=== PATIENT | female | born 1985 | race Caucasian/White ===

== ENCOUNTER → 2019-06-27 09:10 | Outpatient (BNVA) | payer OTHER, SELFPAY | PROVIDERS: Family Provider Family Medicine; PCP Family Medicine; Referring Provider Obstetrics & Gynecology; Visit Provider Obstetrics & Gynecology | DX: Z32.01 Encounter for pregnancy test, result positive (principal) | CPT/HCPCS: 81025 ==

== ENCOUNTER → 2019-07-18 11:05 | Outpatient (BNVA) | payer OTHER, SELFPAY | PROVIDERS: Family Provider Family Medicine; PCP Family Medicine; Visit Provider Nurse Practitioner Women's Health | DX: Z34.90 Encounter for supervision of normal pregnancy, unspecified, unspecified trimester (principal); Z78.9 Other specified health status; Z3A.08 8 weeks gestation of pregnancy | CPT/HCPCS: 84315; 87086 ==

== ENCOUNTER → 2019-07-20 15:44 | Outpatient (BNVA) | payer OTHER, SELFPAY | PROVIDERS: Family Provider Family Medicine; PCP Family Medicine; Referring Provider Nurse Practitioner Women's Health; Visit Provider Nurse Practitioner Women's Health | DX: Z36.87 Encounter for antenatal screening for uncertain dates (principal); Z3A.01 Less than 8 weeks gestation of pregnancy | CPT/HCPCS: 76817 ==

== ENCOUNTER → 2019-08-03 11:50 | Outpatient (BNVA) | payer OTHER, SELFPAY | PROVIDERS: Family Provider Family Medicine; PCP Family Medicine; Visit Provider Obstetrics & Gynecology | DX: Z34.80 Encounter for supervision of other normal pregnancy, unspecified trimester (principal); Z86.39 Personal history of other endocrine, nutritional and metabolic disease | CPT/HCPCS: 80053; 80307; 84315; 84443; 85027; 86592; 86762; 86803; 86850; 86900; 87340; 87806 ==

== ENCOUNTER → 2019-08-15 15:30 | Outpatient (BNVA) | payer OTHER, SELFPAY | PROVIDERS: Family Provider Family Medicine; PCP Family Medicine; Visit Provider Obstetrics & Gynecology | DX: Z34.80 Encounter for supervision of other normal pregnancy, unspecified trimester (principal); Z12.4 Encounter for screening for malignant neoplasm of cervix; Z34.90 Encounter for supervision of normal pregnancy, unspecified, unspecified trimester | CPT/HCPCS: 82950; 84315; 87491; 87591; 88175 ==

== ENCOUNTER → 2019-09-18 10:00 | Outpatient (BNVA) | payer SELFPAY | PROVIDERS: Family Provider Family Medicine; PCP Family Medicine; Visit Provider Nurse Practitioner Women's Health | DX: O09.291 Supervision of pregnancy with other poor reproductive or obstetric history, first trimester (principal); Z86.39 Personal history of other endocrine, nutritional and metabolic disease | CPT/HCPCS: 84315; 84439; 84443 ==

== ENCOUNTER 2019-09-20 15:09 | Outpatient (CLI) | payer OTHER, SELFPAY ==
[2019-09-20 16:03] LABS: Free T4 Free Thyroxine 0.86 ng/dL (0.82-1.77); Thyroid Stimulating Hormone 3.83 uIU/mL (0.27-4.20)
[2019-09-20 22:55] LABS: Total Protein 24 Hour Urine 292.5 mg/24HR (0-150); Total Volume, Urine 4875 mL
== END 2019-09-20 15:10 | disposition home or self-care (01) ==
LOC: LAB 15:17
PROVIDERS: Nurse Practitioner Women's Health; Visit Provider Obstetrics & Gynecology
DX: Z86.39 Personal history of other endocrine, nutritional and metabolic disease (principal); O09.291 Supervision of pregnancy with other poor reproductive or obstetric history, first trimester
CPT/HCPCS: 36415; 84156; 84439; 84443

== ENCOUNTER → 2019-10-22 08:08 | Outpatient (BNVA) | payer OTHER, SELFPAY | PROVIDERS: Visit Provider Obstetrics & Gynecology | DX: Z36.89 Encounter for other specified antenatal screening (principal) | CPT/HCPCS: 76805 ==

== ENCOUNTER 2019-11-07 12:47 | Emergency (ER) | payer OTHER, SELFPAY ==
[2019-11-07 12:53] VITALS: BP 164/74; PULSE 94; RESP 16; TEMP 36.9; O2SAT 97; BMI 47.1
--- NOTE | 2019-11-07 12:55 | ED_ITS ---
HPI - Back Pain/Injury General: Chief Complaint: Chest Pain Stated Complaint: back pain/cp Time Seen by Provider: 11/07/19 12:55 Source: patient Mode of arrival: ambulatory Limitations: no limitations History of Present Illness: HPI Narrative: Patient is 22 weeks , she reports she was sitting down and eating lunch when she started having some chest discomfort. Patient came to the emergency room for further evaluation. Patient reports her pain is relieved at this time after laying down. Patient appears well. Patient appears in no pain or discomfort. Vital signs are normal except for mild elevation in blood pressure with a systolic of 164. Review of Systems General: Reports: 10 or more systems reviewed and unremarkable except in HPI and below Card: Reports: chest pain [facility] ED PFSH: Medical History (Updated 11/07/19 @ 15:58 by KELLY Gomez) History of hypothyroidism TSH normal on 08/03/2019 at the beginning of the History of kidney stones Surgical History H/O dilation and curettage (~2006) Due to heavy bleeding H/O lithotripsy (~2015) left kidney/ureter to remove the stent Family History Father Hypertension Grandmother Stroke Maternal grandmother Diabetes Paternal grandmother Social History Smoking and tobacco status: never smoked Alcohol intake: never Physical Exam Const: COMMON NORMALS: no acute distress and patient oriented x3 GENERAL AP PEARANCE: cooperative HENMT: COMMON NORMALS: normocephalic and Normal external nose present HEAD & SCALP: normal to inspection and normocephalic NOSE: Normal external nose present MOUTH: Normal oral and palatal mucosa present THROAT: posterior oropharynx normal Eye: GENERAL EYE: appearance normal, both eyes and all related structures Neck/C-Spine: COMMON NORMALS: full ROM Lymph: LYMPHATIC: no lymphadenopathy noted Chest: COMMONS NORMALS: normal inspection of the chest Resp: COMMON NORMALS: normal respiratory effort EFFORT & INSPECTION: Yes able to speak in complete sentences Cardio: COMMON NORMALS: regular rate and regular rhythm RATE: regular rate RHYTHM: regular rhythm HEART SOUNDS: Murmur heart sound present systolic (mild grade 3) GI: COMMON NORMALS: non-tender : COMMON NORMALS: Yes no CVA tenderness BLADDER/KIDNEY EXAM: Yes no CVA tenderness Back/Pelvis: COMMON NORMALS: no CVA tenderness and thoracic and lumbar spine normal to inspection Extremity: COMMON NORMALS: normal to inspection Neuro: COMMON NORMALS: patient oriented x3 and moves all extremities Psych: COMMON NORMALS: mental status grossly normal and cooperative Skin: COMMON NORMALS: no rashes or lesions noted GENERAL SKIN EXAM: no rashes or lesions noted Course 2 Vital Signs: Vital signs: Vital Signs Temperature 98.4 F 11/07/19 12:53 Pulse Rate 94 11/07/19 12:53 Respiratory Rate 16 11/07/19 12:53 Blood Pressure 164/74 11/07/19 12:53 Pulse Oximetry 97 11/07/19 12:53 MDM - Back Pain/Injury MDM Narrative: Medical decision making narrative: Patient comes in today with chest pain onset after eating. Patient is 22 weeks denies any shortness of breath and reports that her pain is much improved since coming to the emergency department. Patient appears well. Abdomen soft and nontender. Vital signs are normal except for some mild elevation in blood pressure at 160 systolic. Differential diagnosis includes but not limited to gastroesophageal reflux, cholecystitis, cholelithiasis, appendicitis, pancreatitis, gastroenteritis, ACS, cardiomyopathy. Troponin was negative at 0 and second hour. Liver enzymes are normal. CBC was normal. Urinalysis was clear. Troponin was 0.9 although in light of no other signs or symptoms or significance I believe is normal. EKG was normal sinus rhythm. Reviewed exam with patient and recommendations of treatment. Patient reported understanding and agreed with plan. Patient did understand the need for follow-up for worsening symptoms or shortness of breath. Lab Data: Labs: Lab Results 11/07/19 11/07/19 11/07/19 Range/Units 13:22 13:22 13:22 WBC 8.9 (4.0-10.0) 10^3/ uL RBC 4.14 (4.1-5.3) 10^6/u L Hgb 11.5 (11.5-15.3) g/dL Hct 36.1 L (37.0-47.0) % MCV 87.2 (81-99) fL MCH 27.8 L (28.0-34.0) pg MCHC 31.9 (30.0-36.0) g/dL RDW 13.4 (12.1-15.1) % Plt Count 202 (130-400) 10^3/c mm MPV 10.5 H (7.4-10.4) fL Neut % (Auto) 72.1 % Lymph % (Auto) 20.0 % [place] % (Auto) 5.5 % Eos % (Auto) 2.0 % Baso % (Auto) 0.2 % Neut # (Auto) 6.4 (1.8-7.7) 10^3/u L Lymph # (Auto) 1.8 (0.8-4.8) 10^3/u L [place] # (Auto) 0.5 (0.2-0.9) 10^3/u L Eos # (Auto) 0.2 (0.0-0.8) 10^3/u L Baso # (Auto) 0.0 (0.0-0.1) 10^3/u L Nucleated RBC % (a uto) 0 % Nucleated RBCs # 0.0 /100WBC PT 13.90 H (10.5-13.3) SECO NDS INR 1.03 (0.8-1.2) APTT 28.3 (23.9-36.7) SECO NDS D-Dimer 0.96 H (0-0.59) ug/mIFE U Sodium 137 (136-145) mmol/L Potassium 3.5 (3.5-5.1) mmol/L Chloride 103 (98-107) mmol/L Carbon Dioxide 21 L (22-29) mmol/L Anion Gap 16.5 (5-19) BUN 9 (6-20) mg/dL Creatinine 0.5 (0.5-0.9) mg/dL GFR Calculation 143.0 H (90-130) mL/min Glucose 93 (65-115) mg/dL Calculated Osmolal ity 280 L (285-295) mOsm/k g Calcium 9.1 (8.5-10.5) mg/dL Total Bilirubin 0.2 (0.15-1.2) mg/dL AST 13 (0-32) U/L ALT 10 (0-33) U/L Alkaline Phosphata se 63 (35-105) IU/L Troponin T Baselin e (0-10) ng/L Troponin T 120 Min [place] (0-10) ng/L Delta Troponin T (0-10) ABS# Total Protein 6.1 L (6.6-8.7) g/dL Albumin 3.8 (3.5-5.2) g/dL Globulin 2.3 (1.3-4.6) g/dL Urine Color (Yellow) Urine Appearance (CLEAR) Urine pH (5-7) Ur Specific Gravit y (1.005-1.030) Urine Protein (Negative) Urine Glucose (UA) (Normal) Urine Ketones (Negative) Urine Blood (Negative) Urine Nitrate (Negative) Urine Bilirubin (NEGATIVE) Urine Urobilinogen (Negative) mg/dL Ur Leukocyte Gaby ase (Negative) Urine RBC (0-2) /hpf Urine WBC (0-5) /hpf Ur Squamous Epith Cells (0-5) Calcium Oxalate Cr ystal /hpf Amorphous Sediment Urine Bacteria (NONE) Urine Mucus 11/07/19 11/07/19 11/07/19 Range/Units 13:22 13:30 15:30 WBC (4.0-10.0) 10^3/ uL RBC (4.1-5.3) 10^6/u L Hgb (11.5-15.3) g/dL Hct (37.0-47.0) % MCV (81-99) fL MCH (28.0-34.0) pg MCHC (30.0-36.0) g/dL RDW (12.1-15.1) % Plt Count (130-400) 10^3/c mm MPV (7.4-10.4) fL Neut % (Auto) % Lymph % (Auto) % [place] % (Auto) % Eos % (Auto) % Baso % (Auto) % Neut # (Auto) (1.8-7.7) 10^3/u L Lymph # (Auto) (0.8-4.8) 10^3/u L [place] # (Auto) (0.2-0.9) 10^3/u L Eos # (Auto) (0.0-0.8) 10^3/u L Baso # (Auto) (0.0-0.1) 10^3/u L Nucleated RBC % (a uto) % Nucleated RBCs # /100WBC PT (10.5-13.3) SECO NDS INR (0.8-1.2) APTT (23.9-36.7) SECO NDS D-Dimer (0-0.59) ug/mIFE U Sodium (136-145) mmol/L Potassium (3.5-5.1) mmol/L Chloride (98-107) mmol/L Carbon Dioxide (22-29) mmol/L Anion Gap (5-19) BUN (6-20) mg/dL Creatinine (0.5-0.9) mg/dL GFR Calculation (90-130) mL/min Glucose (65-115) mg/dL Calculated Osmolal ity (285-295) mOsm/k g Calcium (8.5-10.5) mg/dL Total Bilirubin (0.15-1.2) mg/dL AST (0-32) U/L ALT (0-33) U/L Alkaline Phosphata se (35-105) IU/L Troponin T Baselin e 6 (0-10) ng/L Troponin T 120 Min [place] 6.00 (0-10) ng/L Delta Troponin T 0 (0-10) ABS# Total Protein (6.6-8.7) g/dL Albumin (3.5-5.2) g/dL Globulin (1.3-4.6) g/dL Urine Color Yellow (Yellow) Urine Appearance Sl cloudy A (CLEAR) Urine pH 5 (5-7) Ur Specific Gravit y 1.030 (1.005-1.030) Urine Protein Neg (Negative) Urine Glucose (UA) Norm (Normal) Urine Ketones Negative (Negative) Urine Blood Neg (Negative) Urine Nitrate Negative (Negative) Urine Bilirubin Neg (NEGATIVE) Urine Urobilinogen Neg (Negative) mg/dL Ur Leukocyte Gaby ase 2+ H (Negative) Urine RBC None (0-2) /hpf Urine WBC 40-55 H (0-5) /hpf Ur Squamous Epith Cells 15-25 H (0-5) Calcium Oxalate Cr ystal 5-10 H /hpf Amorphous Sediment Not Reportable Urine Bacteria 2+ H (NONE) Urine Mucus 2+ EKG Data^: EKG 1: Attestation: I personally reviewed and interpreted this EKG as follows: (1307, normal sinus rhythm, 85 bpm and regular. No ectopy, no ST elevation.) EKG 2: Attestation: I personally reviewed and interpreted this EKG as follows: (1507, normal sinus rhythm, 80 bpm and regular, no ectopy, no ST elevation, no change from prior EKG.) Discharge Plan Discharge Patient Disposition: Home, Self-Care Clinical Impression: Atypical chest pain Condition: Stable Prescriptions: New famotidine 20 mg tablet 20 mg PO BID Qty: 60 RF: 0 No Action prenat.vits,jay,[id number] Tablet 1 tab PO DAILY RF: 0 aspirin 81 mg tablet,delayed release (DR/EC) 81 mg PO DAILY RF: 0 fluoxetine 20 mg capsule 20 mg PO DAILY Qty: 30 RF: 6 Discharge Orders: Discharge Order (Routine); Ordered 11/07/19 Ordered By: Hugo Boland Referrals: Janet Valentino MD [Primary Care Provider] - Discharge Diet: Usual diet Discharge Activity: Increase activity as tolerated Activity Restrictions/Additional Instructions: Drink plenty of water. Light diet avoiding really spicy, acidic, or greasy foods. Healthy diet including plenty of fresh fruits and vegetables. Activity as tolerated. Follow-up with primary care in 1 week. Return to the ER for worsening symptoms or increased difficulty breathing. Coding Level of Care Code ED Senior Product Engineer for Chg Fwd Exam Comprehensive
--- NOTE | 2019-11-07 13:01 | ECG_ITS ---
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 Measurements Intervals [place] Rate: 85 P: 30 DE: 125 QRS: 35 QRSD: 92 T: 34 QT: 368 QTc: 438 Interpretive Statements SINUS RHYTHM No previous ECG available for comparison Electronically Signed On 11-07-2019 17:06:47 CDT by Laura Lund M.D. [id number]
[2019-11-07 13:34] LABS: Basophils % 0.2 %; Eosinophils # 0.2 10^3/uL (0.0-0.8); Hematocrit 36.1 % (37.0-47.0); Hemoglobin 11.5 g/dL (11.5-15.3); Lymphocytes # 1.8 10^3/uL (0.8-4.8); Mean Corpuscular HGB Conc 31.9 g/dL (30.0-36.0); Mean Corpuscular Hemoglobin 27.8 pg (28.0-34.0); Mean Corpuscular Volume 87.2 fL (81-99); Mean Platelet Volume 10.5 fL (7.4-10.4); Monocytes # 0.5 10^3/uL (0.2-0.9); Monocytes % 5.5 %; Neutrophils # 6.4 10^3/uL (1.8-7.7); Neutrophils % 72.1 %; Nucleated Red Blood Cells % 0 %; Platelet Count 202 10^3/cmm (130-400); Red Blood Count 4.14 10^6/uL (4.1-5.3); Red Cell Distribution Width 13.4 % (12.1-15.1); White Blood Count 8.9 10^3/uL (4.0-10.0)
[2019-11-07 14:16] LABS: Alanine Aminotransferase 10 U/L (0-33); Albumin Level 3.8 g/dL (3.5-5.2); Alkaline Phosphatase 63 IU/L (35-105); Anion Gap 16.5 (5-19); Aspartate Amino Transferase 13 U/L (0-32); Blood Urea Nitrogen 9 mg/dL (6-20); Calcium 9.1 mg/dL (8.5-10.5); Carbon Dioxide 21 mmol/L (22-29); Chloride 103 mmol/L (98-107); Globulin 2.3 g/dL (1.3-4.6); Glucose 93 mg/dL (65-115); Osmolality Calculated 280 mOsm/kg (285-295); Potassium 3.5 mmol/L (3.5-5.1); Sodium 137 mmol/L (136-145); Total Bilirubin 0.2 mg/dL (0.15-1.2); Total Protein 6.1 g/dL (6.6-8.7)
[2019-11-07 14:17] LABS: Troponin(5th) Baseline 6 ng/L (0-10)
[2019-11-07 14:27] LABS: Add Urine Microscopic? YES; Bilirubin Urine Neg (NEGATIVE); Blood Urine Neg (Negative); Glucose Urine UA Norm (Normal); Ketones Urine Negative (Negative); Leukocyte Esterase Urine 2+ (Negative); Nitrate Urine Negative (Negative); Protein Urine Neg (Negative); Urine Color Yellow (Yellow); Urobilinogen Urine Neg (Negative); pH Urine 5 (5-7)
[2019-11-07 14:28] LABS: Add Urine Culture? No; Bacteria Urine 2+; Mucus Urine 2+; Squamous Epithelial Cell Urine 15-25 (0-5); WBC Urine 40-55 /hpf (0-5)
--- NOTE | 2019-11-07 15:01 | ECG_ITS ---
[facility] Test Date: 2019-11-07 Pat Name: Juli Trejo Department: Room: Gender: Female Fishing Boat Captain: : 1985 Requested By: Hugo Bull Order Number: [id number] Christine MD: Laura Lund M.D. Measurements Intervals [place] Rate: 80 P: 27 OK: 137 QRS: 34 QRSD: 93 T: 35 QT: 386 QTc: 446 Interpretive Statements SINUS RHYTHM Compared to ECG 11/07/2019 13:07:50 No significant changes Electronically Signed On 11-07-2019 17:10:49 CDT by Laura Lund M.D. [id number]
[2019-11-07 15:08] LABS: INR 1.03 (0.8-1.2)
[2019-11-07 15:09] LABS: Partial Thromboplastin Time 28.3 SECONDS (23.9-36.7)
[2019-11-07 15:12] LABS: D Dimer 0.96 ug/mIFEU (0-0.59)
[2019-11-07 15:54] LABS: Troponin 5 2HR Delta 0 ABS# (0-10)
[2019-11-07 16:28] VITALS: BP 134/74; PULSE 68; RESP 17; O2SAT 99
== END 2019-11-07 16:29 | disposition home or self-care (01) ==
PROVIDERS: Emergency Provider Nurse Practitioner Family; PCP Obstetrics & Gynecology
DX: O23.42 Unspecified infection of urinary tract in pregnancy, second trimester (principal); Z3A.22 22 weeks gestation of pregnancy; O26.892 Other specified pregnancy related conditions, second trimester; R07.89 Other chest pain; Z79.82 Long term (current) use of aspirin
CPT/HCPCS: 12345; 36415; 80053; 81001; 84484; 85025; 85378; 85610; 85730; 93005; 99282; 99283

== ENCOUNTER → 2019-12-11 13:18 | Outpatient (BNVA) | payer SELFPAY | PROVIDERS: PCP Obstetrics & Gynecology; Visit Provider Nurse Practitioner Women's Health | DX: O09.291 Supervision of pregnancy with other poor reproductive or obstetric history, first trimester (principal); Z86.39 Personal history of other endocrine, nutritional and metabolic disease | CPT/HCPCS: 81000; 82950; 84443; 85027 ==

== ENCOUNTER → 2019-12-24 11:39 | Outpatient (BNVA) | payer SELFPAY | PROVIDERS: Visit Provider Obstetrics & Gynecology | DX: O09.893 Supervision of other high risk pregnancies, third trimester (principal); O09.293 Supervision of pregnancy with other poor reproductive or obstetric history, third trimester | CPT/HCPCS: 81000 ==

== ENCOUNTER → 2020-01-08 12:52 | Outpatient (BNVA) | payer SELFPAY | PROVIDERS: Visit Provider Obstetrics & Gynecology | DX: O09.893 Supervision of other high risk pregnancies, third trimester (principal); O09.293 Supervision of pregnancy with other poor reproductive or obstetric history, third trimester; O99.283 Endocrine, nutritional and metabolic diseases complicating pregnancy, third trimester; E03.9 Hypothyroidism, unspecified; O99.343 Other mental disorders complicating pregnancy, third trimester; F32.9 Major depressive disorder, single episode, unspecified; F41.9 Anxiety disorder, unspecified; O99.213 Obesity complicating pregnancy, third trimester; Z3A.32 32 weeks gestation of pregnancy | CPT/HCPCS: 81000 ==

== ENCOUNTER → 2020-01-14 00:01 | Outpatient (BNVA) | payer SELFPAY | PROVIDERS: Visit Provider Obstetrics & Gynecology | DX: O09.291 Supervision of pregnancy with other poor reproductive or obstetric history, first trimester (principal); Z3A.33 33 weeks gestation of pregnancy | CPT/HCPCS: 84156 ==

== ENCOUNTER → 2020-01-16 15:30 | Outpatient (BNVA) | payer OTHER, SELFPAY | PROVIDERS: Visit Provider Obstetrics & Gynecology | DX: R39.9 Unspecified symptoms and signs involving the genitourinary system (principal); R30.0 Dysuria | CPT/HCPCS: 80053 ==

== ENCOUNTER → 2020-02-04 12:59 | Outpatient (BNVA) | payer OTHER, SELFPAY | PROVIDERS: Visit Provider Obstetrics & Gynecology | DX: O09.893 Supervision of other high risk pregnancies, third trimester (principal) | CPT/HCPCS: 84315; 87081 ==

== ENCOUNTER → 2020-02-20 00:01 | Outpatient (BNVA) | payer OTHER, SELFPAY | PROVIDERS: Visit Provider Obstetrics & Gynecology | DX: O16.3 Unspecified maternal hypertension, third trimester (principal); Z3A.38 38 weeks gestation of pregnancy | CPT/HCPCS: 84156 ==

== ENCOUNTER 2020-02-24 14:30 | Inpatient (IN) | payer OTHER, SELFPAY ==
[2020-02-24] VITALS (11 sets, daily range): BP systolic 0–147; BP diastolic 0–84; PULSE 63–84; TEMP 36.7; BMI 47.7
[2020-02-24 20:28] LABS: Basophils # 0.1 10^3/uL (0.0-0.1); Basophils % 0.6 %; Eosinophils # 0.3 10^3/uL (0.0-0.8); Eosinophils % 3.5 %; Hematocrit 39.1 % (37.0-47.0); Hemoglobin 12.4 g/dL (11.5-15.3); Lymphocytes # 2.3 10^3/uL (0.8-4.8); Lymphocytes % 25.9 %; Mean Corpuscular HGB Conc 31.7 g/dL (30.0-36.0); Mean Platelet Volume 11.2 fL (7.4-10.4); Monocytes # 0.6 10^3/uL (0.2-0.9); Monocytes % 6.6 %; Neutrophils % 63.1 %; Nucleated Red Blood Cells % 0 %; Platelet Count 218 10^3/cmm (130-400); Red Cell Distribution Width 13.9 % (12.1-15.1); White Blood Count 8.9 10^3/uL (4.0-10.0)
[2020-02-24 20:44] LABS: Alanine Aminotransferase 12 U/L (0-33); Albumin Level 3.5 g/dL (3.5-5.2); Alkaline Phosphatase 216 IU/L (35-105); Aspartate Amino Transferase 15 U/L (0-32); Blood Urea Nitrogen 10 mg/dL (6-20); Calcium 9.7 mg/dL (8.5-10.5); Carbon Dioxide 18 mmol/L (22-29); Chloride 109 mmol/L (98-107); Glucose 85 mg/dL (65-115); Osmolality Calculated 288 mOsm/kg (285-295); Sodium 140 mmol/L (136-145); Total Bilirubin 0.2 mg/dL (0.15-1.2); Total Protein 6.5 g/dL (6.6-8.7); Uric Acid 5.8 mg/dL (2.4-5.7)
[2020-02-24 20:53] LABS: Urine Creatinine 135 mg/dL (28-217); Urine Protein Random 10 mg/dL
[2020-02-24 20:55] LABS: UPRO/UCREAT Ratio 0.07 mg/mg CR
[2020-02-24] MEDS: dextrose 5%-lactated ringers 1,000 ML 125 ML IV (21:30)
[2020-02-24] MEDS: ampicillin 2,000 MG in sodium chloride 0.9% (plus) 50 ML 100 MG IV (21:30)
[2020-02-24] MEDS: miSOPROStol 100 mcg tablet 25 MCG VAGINAL (22:13)
[2020-02-25] VITALS (155 sets, daily range): BP systolic 0–161; BP diastolic 0–105; PULSE 51–100; RESP 14–18; TEMP 36.4–37.2; O2SAT 81–100
[2020-02-25] MEDS: ampicillin 1,000 MG in sodium chloride 0.9% (plus) 50 ML 100 MG IV ×4 (01:30→14:06)
[2020-02-25] MEDS: oxytocin 30 UNIT/500 ML BAG IV (03:44)
--- NOTE | 2020-02-25 07:00 | PC.NURSE ---
FHT intermittent due maternal habitus will increase pitocin when reactive tracing attained
[2020-02-25 12:55] LABS: Add Urine Microscopic? NO
[2020-02-25] MEDS: lactated ringers 1,000 ML 999 ML IV ×2 (12:59→16:00)
[2020-02-25 13:26] LABS: Bilirubin Urine Neg (Negative); Blood Urine Neg (Negative); Glucose Urine UA Norm (Normal); Ketones Urine Negative (Negative); Leukocyte Esterase Urine Negative (Negative); Nitrate Urine Negative (Negative); Protein Urine Neg (Negative); Specific Gravity, Urine 1.015 (1.005-1.030); Urine Appearance Clear (CLEAR); Urine Color Yellow (Yellow); Urobilinogen Urine Norm (Negative); pH Urine 7 (5-7)
--- NOTE | 2020-02-25 13:30 | P.ANESASSM_ITS ---
Pre-Anesthetic Assessment Pre-Anesthetic Assessment: Height/Weight: Height 1.73 m Weight 142.428 kg Temp Pulse Resp BP Pulse Ox 98.3 F 74 18 134/83 99 02/25/20 11:33 02/25/20 14:03 02/25/20 11:33 02/25/20 14:03 02/25/20 14:02 Preop Diagnosis: IUP Proposed Procedure: epidural Familial anesthetic complications: None Social: Social History: No alcohol and No tobacco Exam: Pre-Anes Outpt Exam: alert, oriented x 3, clear to auscultation bilaterally and regular rate & rhythm Airway: Cervical ROM: WNL MP: 3 Dentition: Chipped Metabolic: Metabolic: Morbid obesity Anesthetic Plan: ASA status: 3 Anesthesia: Regional (specify below) Other Pertinent Information: gestational HTN Meds/Allergies Current Medications: Current Medications Generic Name Dose Route Start Last Admin Trade Name Freq PRN Reason Stop Dose Admin Ampicillin Sodium 1,000 mg/ 50 mls @ 100 mls/ hr 02/25/20 01:06 02/25/20 10:42 Sodium Chloride IV Infused Q4H NEVAEH Infusion Protocol Dextrose/Lactated Ringer's 1,000 mls @ 125 m ls/hr 02/25/20 02:45 02/24/20 21:30 Dextrose 5%-Lact ated Ringers IV 125 mls/hr .Q8H NEVAEH Administration Oxytocin 30 unit in 500 ml s @ 1 mls/hr 02/25/20 04:45 02/25/20 12:30 Pitocin IV 15 milliunit/min .Q24H NEVAEH 15 mls/hr Titration Protocol 1 MILLIUNIT/MIN Lactated Ringer's 1,000 mls @ 999 m ls/hr 02/25/20 12:38 02/25/20 12:59 Lactated Ringers IV 999 mls/hr .Q1H1M PRN Administration See label comment s PFSH Anesthesia PFSH: Medical History (Updated 02/22/20 @ 13:08 by Valente Toscano MD) History of hypothyroidism TSH normal on 08/03/2019 at the beginning of the History of kidney stones Surgical History H/O dilation and curettage (~2006) Due to heavy bleeding H/O lithotripsy (~2015) left kidney/ureter to remove the stent Family History Father Hypertension Grandmother Stroke Maternal grandmother Diabetes Paternal grandmother Social History (Updated 02/24/20 @ 16:01 by Valente Toscano MD) Smoking and tobacco status: never smoked Alcohol intake: never Substance/Drug Use: never Female Reproductive History: : 5 Data Anesthesia CBC & Chem 7: 02/24/20 20:00 02/24/20 20:00 Other Labs: Laboratory Results - last 48 hr 02/24/20 02/24/20 02/24/20 20:00 20:00 20:00 WBC 8.9 RBC 4.60 Hgb 12.4 Hct 39.1 MCV 85.0 MCH 27.0 L MCHC 31.7 RDW 13.9 Plt Count 218 MPV 11.2 H Neut % (Auto) 63.1 Lymph % (Auto) 25.9 [place] % (Auto) 6.6 Eos % (Auto) 3.5 Baso % (Auto) 0.6 Neut # (Auto) 5.60 Lymph # (Auto) 2.3 [place] # (Auto) 0.6 Eos # (Auto) 0.3 Baso # (Auto) 0.1 Nucleated RBC % (auto) 0 Nucleated RBCs # 0.0 Sodium 140 Potassium 4.0 Chloride 109 H Carbon Dioxide 18 L Anion Gap 17.0 BUN 10 Creatinine 0.7 GFR Calculation 97.0 Glucose 85 Calculated Osmolality 288 Uric Acid 5.8 H Calcium 9.7 Total Bilirubin 0.2 AST 15 ALT 12 Alkaline Phosphatase 216 H Total Protein 6.5 L Albumin 3.5 Globulin 3.0 Urine Color Urine Appearance Urine pH Ur Specific [place] Urine Protein Urine Glucose (UA) Urine Ketones Urine Blood Urine Nitrate Urine Bilirubin Urine Urobilinogen Ur Leukocyte Esterase U Random Total Protein 10 Urine Creatinine 135 Protein/Creatinin Ratio 0.07 02/24/20 20:02 WBC RBC Hgb Hct MCV MCH MCHC RDW Plt Count MPV Neut % (Auto) Lymph % (Auto) [place] % (Auto) Eos % (Auto) Baso % (Auto) Neut # (Auto) Lymph # (Auto) [place] # (Auto) Eos # (Auto) Baso # (Auto) Nucleated RBC % (auto) Nucleated RBCs # Sodium Potassium Chloride Carbon Dioxide Anion Gap BUN Creatinine GFR Calculation Glucose Calculated Osmolality Uric Acid Calcium Total Bilirubin AST ALT Alkaline Phosphatase Total Protein Albumin Globulin Urine Color Yellow Urine Appearance Clear Urine pH 7 Ur Specific [place] 1.015 Urine Protein Neg Urine Glucose (UA) Norm Urine Ketones Negative Urine Blood Neg Urine Nitrate Negative Urine Bilirubin Neg Urine Urobilinogen Norm Ur Leukocyte Esterase Negative U Random Total Protein Urine Creatinine Protein/Creatinin Ratio Cardiac Studies: No Data to Display
--- NOTE | 2020-02-25 14:06 | P.ANES_ITS ---
Anesthesia Procedures Procedure/Date: 02/25/20 Epidural: Time Out Performed: Yes Consents Signed: Procedure Consent, NPO Consent and No Consent Needed Consent: requested by attending/covering physician, from patient, risks and benefits reviewed and patient agrees to proceed Lumbar Level: L2-L3 Epidural position: sitting Epidural procedure: sterile prep of area, 1% lidocaine to numb the area, 18 g needle, negative for paresthesia passed, neg for paresthesia, test dose given, 1.5% xylocaine 1:200k epi (5 cc (3 cc followed by 2 cc after negative test dose)), 0.2% Ropivacaine bolus ml (5 ml), placed PCEA, no systemic response, sterile dressing applied, L.U.D. no apparent complications and 0.2% Ropiavacaine @ mls/hr (13) Additional Comments: JOSE at 7 cm, threaded to 13 cm. Patient's ligament very tough leading to sudden jump forward of needle with JOSE concerning for possible Wet Tap. however, no CSF seen with removal of stylet and no csf aspirated with catheter placement. Improvement in pain from 10/10 to 4/10 and only at my right hip, now. Patient noted tingling/numbness setting up in her t oes, no apparent loss of motor function.
[2020-02-25] MEDS: dextrose 5%-lactated ringers 1,000 ML 125 ML IV (14:08)
--- NOTE | 2020-02-25 14:42 | PM.PN ---
Subjective Subjective: Interval history: 34 year old, 5, Para 4-0-0-4 with LMP of 07/20/2019 with YOGESH of 03/01/2020 based on 7 week ultrasound, which places her at 39 2/7 weeks. With gestational hypertension, admitted for induction. Epidural in place and comfortable. Vitals/I&O/Wt Last Vital Signs Temp 98.3 F 02/25/20 11:33 Pulse 69 02/25/20 14:36 Resp 18 02/25/20 11:33 BP 137/78 02/25/20 14:36 Pulse Ox 99 02/25/20 14:47 02/24/20 02/25/20 02/25/20 22:59 06:59 14:59 Intake Total 1100 / 1100 101.267 / 101.267 Balance 1100 / 1100 101.267 / 101.267 Weight last 48 hrs Weight 142.428 kg Physical Exam Narrative: EXAM NARRATIVE: GA: Alert and oriented ?3. Lungs: Clear to auscultation bilaterally. Heart: Regular rhythm and rate. Abdomen: Gravid, fundal height correlates dates, nontender. ELECTRICIAN CRANE MAINTENANCE: SVE; dilation: 10 cm, effacement: 100 %, station: +1, presentation: Vertex, membranes: AROM clear. Extremities: no edema, no cyanosis, no calves pain. heart tracing: Basal rate: 140s bpm, Variability: moderate, Accelerations: Present, Decelerations: Absent, Contractions: Every 4-5 minutes. Data : 02/24/20 20:00 02/24/20 20:00 A&P Assessment and plan (1) Term : Patient's B/P under control. Fully dialated. heart tracing category one and good scalp stimulation at the time of AROM with clear fluids.. Anticipate vaginal delivery Status: Acute Attestations Medical Necessity Statement*: in my professional opinion for admitting diagnosis Coding Level of Care Code Acute Administrative Support Assistant for Chg Fwd Diagnoses Term Z34.90
--- NOTE | 2020-02-25 15:46 | CT_ITS ---
WS: [id number] CT HEAD NONCONTRAST HISTORY: decreased level of consciousness TECHNIQUE: Contiguous axial imaging performed through the brain in 2.5 mm imaging. Bone and soft tiss ue windows. Sagittal and coronal reformats reviewed. All CT scans at [facility] use at ast one of these dose optimization techniques: automated exposure control; mA and/or kV adjustment pe r patient size (includes targeted exams where dose is matched to clinical indication); or iterative r econstruction. DLP: 877.30 mGy-cm. COMPARISON: None available. No acute intracranial hemorrhage, midline shift or mass effect. No atrophy or prior infarcts or herniation. Ventricles: Normal size with no hydrocephalus. Paranasal sinuses: Minimal mucoperiosteal thickening in the ethmoid air cells. Mastoid air cells: Well pneumatized. Calvarium and scalp: Skull is intact with no soft tissue edema or swelling. CT/CT head wo con* 06999 IMPRESSION: No acute intracranial hemorrhage. Negative noncontrast head CT.
--- NOTE | 2020-02-25 16:09 | P.PCNOB_ITS ---
Delivery Note: Date of delivery: February 25, 2020 Pre-delivery diagnoses: Term . Gestational hypertension. Morbid obesity. Post-delivery diagnoses: Term delivered. Gestational hypertension. Morbid obesity. Procedure: spontaneous vaginal delivery Op report anesthesia: Epidural Delivering Physician: Manny Welsh M.D. Estimated blood loss (mL): 500 Pre-Delivery Course: The patient is a 34 year old, 5, Para 4-0-0-4 with LMP of 07/20/2019 with YOGESH of 03/01/2020 based on 7 week ultrasound. EGA at 39+2 weeks who has been receiving care from [facility]. She she was admitted to labor and delivery for induction due to gestational hypertension. She continues to feel movement between the contractions. She denies vaginal bleeding or rupture of membranes. CC: induction HPI: Received appropriate care. Daily vitamins since two months prior to conception. labs have all been normal, including negative for HIV. She was found to positive for Group B Strep from screening at 36 weeks. She has gained approximately 3 lbs throughout the . She has history of HTN during and have been diagnosed with gestational hypertension. Glucose tolerance screening for gestational diabetes was negative. Delivery: The patient was noted to be complete and pushing, so was placed in the dorsal lithotomy position, prepped and draped in the usual sterile fashion for a vaginal delivery. Pt. Noted to have epidural anesthesia. Shortly before the delivery the patient started to complain with numbness in her hand and shoulders. At 1455 the patient delivered a viable full term male infant infant weighing 3105 g with scores of 9 and 9 at one and five minutes, respectively. The vertex was delivered spontaneously over intact perineum. The patient was asked to push and the head delivered spontaneously in the AMANDA position, over an intact perineum. A nuchal cord was checked and 1 noted, and relieved around head as necessary. The anterior shoulder delivered easily and the posterior shoulder followed. The remainder of the infant was easily delivered and the oropharynx and nasopharynx was bulb suctioned. The infant was noted to have spontaneous cry and spontaneous movement of all four extremities. The cord was clamped x 2 and cut and noted to have 2 arteries and one vein. The was passed to the mother's abdomen where nursing personnel were in attendance. The placenta delivered intact spontaneously and the uterus was explored. 20 units of Pitocin was placed in the IV bag to firm the uterus. Examination of the cervix and vaginal vault did not reveal any lacerations. A vaginal pack was then placed. Examination of the perineum showed first degree not bleeding doesn't require repair. The vaginal pack was then removed. The patient tolerated this procedure well, and recovered in L&D with her in L&D. All sponge and needle counts were correct. She continue to refer hand and shoulder numbness. The nurse was instructed to call anesthesiologist for suspected high epidural. Anesthesiologist came to the room and started to evaluate the patient when I was called to assist another delivery. Shortly after delivery I was called back into the room while I was delivering another patient because the patient started to become less responsive and continue to refer numbness in her hands and shoulders, difficulty breathing and dry mouth. Anesthesiology was in the room. Vital signs were normal and pulse oximeter was normal. She was in and out of consciousness. Suspected high epidural and the Rapid response team was called to assist. The patient continue with vital signs within normal limits but not alert and unresponsive at times to verbal commands. Blood glucose level was 130. The patient was taken to the CT scan for a head CT which is normal. The patient will continue with one on one observation. A&P Assessment and plan (1) Term : Status: Acute Coding Level of Care Code Acute Sand Conditioner Machine for Chg Fwd Diagnoses Term Z34.90
[2020-02-25 16:20] LABS: Glucose Point of Care 130 mg/dL (70-110)
--- NOTE | 2020-02-25 16:39 | PM.MISC ---
Miscellaneous Note Purpose of Documentation: Event Note: Was called up to OB at approximately 1500 after patient delivered her with 1-2 easy pushes. Was informed over phone that patient was complaining of numbness up to her shoulders. Upon arrival patient's BP, HR, and Spo2 were within normal limits on room air. Patient was very lethargic, easily falling asleep, stating she was having difficulty breathing, but she was in no respiratory distress. She stated she was numb all over. Patient was able to move her arms and legs, but was objectively weak with weak handgrip. I sat her in almost full upright position in case of high spinal. Epidural catheter had already been stopped upon my arrival. I aspirated approximately 6 cc over 1-3 minutes and noted blood-tinged fluid. Catheter was removed with tip intact and some blood was noted at the tip. Patient had received lidocaine 1.5% w 1:200,000 epi (5 cc), two 5 cc boluses of epidural pump solution (ropi 0.2%), and had been receiving 13 ml/hr for 1 hour. She remained asymptomatic throughout, but right before patient pushed for delivery she stated she was having trouble breathing and felt numb. Patient's mental status continued to decline becoming more difficult to arouse and spo2 dropped to approximately 93% when not being aroused. I elected to apply oxygen to help replace her FRC with 100% O2 in case patient were to become hypopneic, apneic, or require intubation. OB physician was called and rapid response was called. Patient was brought down for head CT to rule out stroke in setting of getstational HTN. During transfer she Continued to have AMS/lethargy/obtundation but would awake when agressively stimulated and complain of dry mouth. She was would also reach up and remove her O2 mask spontaneously since it was exacerbating her dry mouth symptoms. CT was negative and patient was brought back to OB, where her mental status improved. She is still complaining of numbness, but is still able to spontaneously move all extremities. I retrieved the syringe of epidural aspirate from the trash can in the patient's room and elected to send it out for beta transferrin to help elucidate etiology of event. We did test the solution via glucometer for presence of glucose with a result of 23, but the solution was blood-tinged (blood contains glucose) and lab did not recommend this as the glucometer is designed for whole blood. It is very possible the epidural catheter eroded into the intrathecal space, but it would be unusual for a high spinal to cause no perturbations in BP, HR, or ability to breath, but cause obtundation/AMS. It is also possible given patient's body habitus that she had higher rise than normal of her epidural solution, but it would still remain an unusual pattern to affect her mental status, but not her cardioaccelerator fibers or BP. The other likely possibility is that this catheter was subdural and this could explains her unusual symptoms, including delayed presentation, lack of CSF with removal of tuohy style and initial aspiration of catheter, excess sensory symptoms over motor symptoms, and AMS.
[2020-02-25] MEDS: ondansetron 2 mg/ML SDV 2 mL 4 MG IVP (16:50)
--- NOTE | 2020-02-25 19:15 | PC.NURSE ---
epidural pump strarted at 1355, pt got comfortable with no complaints. pt found to be complete at 1440 and AROM performed by Dr Espinosa at that time, small amount of clear fluid noted. room prepared and pt set up for pushing/delivery. one practice push at 1450, baby moved well. dr espinosa back into room at 1453, pt stated she couldn't breathe. pt began pushing at 1455, and delivered at 1455 and continued stating she couldn't breathe and her whole body was numb. epidural pump shut off at [address] Brizuela called and coming up. Dr Brizuela to room at 1500, pt still c/o numbness, SOB, and feeling extremely tired. epidural cathether removed by Dr Brizuela. Pt blood pressure, pulse, and 02 sats WNL. Pt becoming less alert and falling asleep, but would wake to stimulation. Dr Espinosa was in another delivery, but was requested in room. 02 was given at 10L via facemask per Dr Brizuela. Dr Espinosa arrived to room at 1516, and at this point pt was not waking to any stimulation. Rapid response called at 1520 and in room at 1525. Vitals remained stable. Pt was taken for a stat CT scan, by Noy Rapid response RN; Rasheeda Velasquez RN; Bharath Leiva RN Rnp; and Bharath Raymond RN at 1535. Pt was back to floor at 1545, still unresponsive. LIZ Gautam; WilliamRN at bedside along with Noy Cooper,LIZ and LIZ Tompkins. Dr Santana came to assess pt at 1605. By 1607 pt was waking up and talking and falling back asleep. By 1630 pt was awake and talking, and by 1700 pt was able to sit up and hold baby and carry on normal conversation. Dr Espinosa notified and in to see pt. New orders received. Pt remains stable.
[2020-02-25] MEDS: docusate sodium 100 mg Capsule PO (19:25)
[2020-02-25] MEDS: benzocaine-menthol 78 gm Canister 1 SPRAY TOPICAL (19:52)
[2020-02-25] MEDS: ibuprofen 800 mg tablet PO (21:57)
[2020-02-26] VITALS (10 sets, daily range): BP systolic 114–136; BP diastolic 62–85; PULSE 66–80; RESP 14–20; TEMP 36.7–37; O2SAT 96–99
[2020-02-26 04:48] LABS: Hematocrit 35.4 % (37.0-47.0); Hemoglobin 11.2 g/dL (11.5-15.3); Mean Corpuscular HGB Conc 31.6 g/dL (30.0-36.0); Mean Corpuscular Hemoglobin 27.1 pg (28.0-34.0); Mean Corpuscular Volume 85.7 fL (81-99); Mean Platelet Volume 11.2 fL (7.4-10.4); Platelet Count 179 10^3/cmm (130-400); Red Blood Count 4.13 10^6/uL (4.1-5.3); Red Cell Distribution Width 13.9 % (12.1-15.1); White Blood Count 9.2 10^3/uL (4.0-10.0)
--- NOTE | 2020-02-26 07:52 | ANE.PACU2 ---
Inpatient post-anesthesia follow up: Airway intact: Yes Vital signs: Temperature 98.6 F Pulse Rate 66 Respiratory Rate 14 Blood Pressure 130/84 Pulse Oximetry 99 Oxygen Delivery Me thod Room Air Oxygen Flow Rate Fraction of Inspir ed Oxygen Hydration adequate: Yes Nausea and vomiting: No Pain level: 1 Mental status: Baseline Additional Comments: No signs of infection at epidural site, no residual numbness or weakness in extremities, up and walking, urinating without rico in place. Denies headache. Baseline mental status. Patient recalls event - I was fine until they pulled me down on the bed for delivery. I think i felt the epidural move and then I felt it in my stomach and I went numb.
[2020-02-26] MEDS: prenatal vitamin Capsule 1 CAP PO (08:28)
[2020-02-26] MEDS: docusate sodium 100 mg Capsule PO (08:28)
[2020-02-26] MEDS: ibuprofen 800 mg tablet PO ×3 (08:28→20:04)
--- NOTE | 2020-02-26 17:28 | P.PN_ITS ---
Subjective Subjective: Interval history: 34-year-old female status post spontaneous vaginal delivery day 1. refers feeling fine. Vitals/I&O/Wt Last Vital Signs Temp 98.1 F 02/26/20 08:30 Pulse 75 02/26/20 08:30 Resp 16 02/26/20 08:30 BP 127/78 02/26/20 08:30 Pulse Ox 96 02/26/20 08:30 02/26/20 02/26/20 02/26/20 06:59 14:59 22:59 Output Total 600 / 1150 Balance -600 / 473.300 Physical Exam Narrative: EXAM NARRATIVE: GA; alert and oriented x 3 HEENT: normal Breasts: engorged Nipples - skin intact Lungs; clear to auscultation Heart: regular rhythm, no murmurs. Abd: Appropriately tender. BS+. Uterine fundus below umbilicus. No Fundal Tenderness. Perineum: normal lochia. Extremities: no edema, no cyanosis, no tenderness. Urinary Catheter Management^: Heath: Cath Placed During This Visit: yes, but has since been removed by the nurse Reason for Continuing Indwelling Catheter: Decision to DC Catheter Urinary Catheter Date of Insertion: 02/25/20 Urinary Catheter Time of Insertion: 14:35 Date Urinary Catheter Removed: 02/25/20 Time Urinary Catheter Discontinued: 19:55 Data : 02/26/20 04:36 02/24/20 20:00 A&P Assessment and plan (1) Term delivered: Patient is status post spontaneous vaginal delivery day 1. She is afebril e hemodynamically stable. Tolerating diet well. Ambulating without difficulty. Overnight observation has been uneventful. We'll continue observation for an additional 24 hours due to the unconsciousness/syncope episode after delivery. Status: Acute Attestations Medical Necessity Statement*: my professional opinion for admitting diagnosis Coding Level of Care Code Acute Acute Care Clinical Nurse Specialist for Chg Fwd Diagnoses Term delivered O80
[2020-02-27 03:50] VITALS: BP 110/71; PULSE 65; RESP 16; TEMP 36.8; O2SAT 96
--- NOTE | 2020-02-27 07:59 | P.DS_ITS ---
Discharge Providers RECRUITING INTERN Date of Admission: 02/24/20 14:30 Date of Discharge: 02/27/20 Attending Provider at Admission: Manny Welsh MD Attending Provider at Discharge: Manny Welsh MD Diagnoses at Discharge Discharge Diagnosis (1) Term delivered: Status: Acute Problem details: status post spontaneous vaginal delivery day 2 Reason for Visit Reason for Visit: induction of labor Hospital Course Hospital Course: 34 year old, 5, Para 4-0-0-4 with LMP of 07/20/2019 with YOGESH of 03/01/2020 based on 7 week ultrasound, which places her at 39 2/7 weeks at the time of admission to labor and delivery. had been complicated by gestational hypertension and morbid obesity. She was admitted to labor and delivery for induction due to gestational hypertension. She progressed to have a spontaneous vaginal delivery of male infant with a weighing 3105 g, Apgars 9/9. Immediately after delivery the patient experienced numbness of hands and shoulders and difficulty breathing and lost unconsciousness shortly after that. Rapid response team was called to the room. Patient's vital signs within normal limits, pulse oximeter also within normal limits, the patient recover shortly after that and suspected high epidural. close observation one-to-one post delivery was uneventful. 48 hours observation post delivery uneventful. She is afebrile and hemodynamically stable, tolerating diet well, ambulating without difficulties. Information Peripartum Data: Delivery Method: Vaginal Physical Exam Narrative: EXAM NARRATIVE: GA; alert and oriented x 3 HEENT: normal Breasts: engorged Nipples - skin intact Lungs; clear to auscultation Heart: regular rhythm, no murmurs. Abd: Appropriately tender. BS+. Uterine fundus below umbilicus. No Fundal Tenderness. Perineum: normal lochia. Extremities: no edema, no cyanosis, no tenderness. Urinary Catheter Management^: Heath: Cath Placed During This Visit: yes, but has since been removed by the nurse Reason for Continuing Indwelling Catheter: Decision to DC Catheter Urinary Catheter Date of Insertion: 02/25/20 Urinary Catheter Time of Insertion: 14:35 Date Urinary Catheter Removed: 02/25/20 Time Urinary Catheter Discontinued: 19:55 Discharge Data Data Completed and Pending: Completed Studies During Hospitalization Category Date Time Status CT head wo con* 7 0450 Stat Cat Scan 02/25/20 15:46 Completed Pending at discharge Category Date Time Status Miscellaneous Lora t Routine Lab 02/25/20 15:00 Received Vitals: Last Vital Signs Temp 98.3 F 02/27/20 03:50 Pulse 65 02/27/20 03:50 Resp 16 02/27/20 03:50 BP 110/71 02/27/20 03:50 Pulse Ox 96 02/27/20 03:50 Discharge Plan Discharge Patient Disposition: Home Condition: Stable Prescriptions: New acetaminophen 325 mg capsule 325 mg PO Q4H PRN (Reason: fever or pain) Qty: 60 RF: 0 ibuprofen 800 mg tablet 800 mg PO TID PRN (Reason: pain) Qty: 60 RF: 0 ferrous sulfate [Iron (ferrous sulfate)] 325 mg (65 mg iron) tablet 325 mg PO BID Qty: 60 RF: 0 Continued prenat.vits,jay,[id number] Tablet 1 tab PO DAILY RF: 0 Discontinued aspirin 81 mg tablet,delayed release (DR/EC) 81 mg PO DAILY RF: 0 Discharge Orders: Discharge Order (Routine); Ordered 02/27/20 Ordered By: Manny Welsh Referrals: Manny Welsh MD [Physician] - 04/04/20 2:00 pm (* Your 6 week appointment is with Dr. Welsh on ) Discharge Diet: Regular Discharge Activity: Increase activity as tolerated Patient Instructions: Vitamins (By mouth), OB Discharge Report, OB Food/Drug Interaction Guide, OB Proud Parent Packet, OB Vaginal Deliveries Activity Restrictions/Additional Instructions: Pelvic rest for 6 weeks (no sex, no tampons, no vaginal douches). Return to the emergency room if any fever, increased bleeding or pain. 1. Please call [facility] on next working day to make your post-procedures appointment in 6 weeks. 2. Please stay home until you come back to the clinic on first post-operative check up. 3. Please follow instructions on your medications CAREFULLY. 4. If you have abdominal incision, do not cover it unless dressing is necessary because of drainage. OK to shower, but avoid bath. Leave steri-strips until they fall off. If they are still on one week after surgery, you may remove them. 5. If you had vaginal surgery, your doctor may instuct you to take SITZ bath. 6. Yellow, blood tinged odorous vaginal discharge is usually normal after hysterectomy or vaginal surgeries. 7. No sexual intercourse, tampons, or douches until you are completely released from the post-operative care. 8. Avoid constipation by eating right and maybe using some Metamucil or Milk of Magnesia. 9. All presciption refills are given during the working hours. Please do no wait till it runs out. Call the clinic at [phone] before your medication runs out. The clinic will get in touch with your doctor to prescribe medications if necessary. 10. Please remain within 40 mile radius from our hospital because emergencies do happen now and then during the post-operative period. 11. If you have stairs at home, take one step at a time slowly and minimize the number of trips. It helps to stay in one floor for the next few days. No lifting except what you can lift by one hand until you are released from the post-operative care. 12. Driving is discouraged until you are well healed. It may be 3-4 weeks before you feel strong enough to drive. You should be able to turn and look throught the rear window without pain and you should be able to push the brake pedal very hard without pain before you drive. No fast rules, but SAFETY should be your primary concern. DO NOT drive if you are on sedating medications such as narcotics. 13. Call the clinic (during working hours) to make urgent appointment or go to the Emergency room, if any of the following occurs: i. Vaginal bleeding becomes heavy, more than a period. ii. Incision becomes red and sore, or drains pus. iii. Your temperature is over 100.4 or you have chill. iv. IV site becomes red and swollen (a little ``knot?? is usually OK) v. Persistent nausea and vomiting vi. Persistent constipation or diarrhea vii. Rash or allergic reaction to medications. Discharge Attestations RECRUITING INTERN Time Spent in Discharge Care*: greater than 30 min Coding Level of Care Code Acute Computerized Mill Mill Recorder for Chg Fwd Diagnoses Term delivered O80
[2020-02-27] MEDS: ibuprofen 800 mg tablet PO (08:39)
[2020-02-27] MEDS: prenatal vitamin Capsule 1 CAP PO (08:39)
[2020-02-27] MEDS: docusate sodium 100 mg Capsule PO (08:39)
[2020-02-27 09:45] VITALS: BP 137/84; PULSE 88; RESP 16; TEMP 36.7; O2SAT 97
[2020-02-27 09:55] VITALS: BP 137/84; PULSE 88; RESP 16; TEMP 36.7; O2SAT 97
== END 2020-02-27 09:55 | disposition home or self-care (01) | DRG 807 ==
PROVIDERS: Admitting Provider Obstetrics & Gynecology; Visit Provider Obstetrics & Gynecology
DX: O13.4 Gestational [pregnancy-induced] hypertension without significant proteinuria, complicating childbirth (principal); Z37.0 Single live birth; Z3A.39 39 weeks gestation of pregnancy; O99.824 Streptococcus B carrier state complicating childbirth; O99.344 Other mental disorders complicating childbirth; O99.214 Obesity complicating childbirth; E66.01 Morbid (severe) obesity due to excess calories; O69.2XX0 Labor and delivery complicated by other cord entanglement, with compression, not applicable or unspecified; Z87.442 Personal history of urinary calculi; F41.8 Other specified anxiety disorders
CPT/HCPCS: 12345; 36415; 36416; 51702; 59025; 59409; 70450; 80053; 81003; 82570; 82962; 84156; 84550; 85025; 85027; 86334; 86335; 96375; J0290; J2405; J2795

== ENCOUNTER → 2020-05-13 10:48 | Outpatient (BNVA) | payer OTHER, SELFPAY | PROVIDERS: Visit Provider Family Medicine | DX: I10 Essential (primary) hypertension (principal); Z86.39 Personal history of other endocrine, nutritional and metabolic disease; E66.01 Morbid (severe) obesity due to excess calories; Z68.42 Body mass index [BMI] 45.0-49.9, adult; R53.83 Other fatigue | CPT/HCPCS: 84439; 84443; 85025 ==

== ENCOUNTER → 2020-11-11 15:06 | Outpatient (BNVA) | payer BC, SELFPAY | PROVIDERS: PCP Family Medicine; Visit Provider Obstetrics & Gynecology | DX: Z30.9 Encounter for contraceptive management, unspecified (principal) | CPT/HCPCS: 81025 ==

== ENCOUNTER → 2021-05-20 16:08 | Outpatient (BNVA) | payer BC, SELFPAY | PROVIDERS: PCP Family Medicine; Visit Provider Obstetrics & Gynecology | DX: N92.6 Irregular menstruation, unspecified (principal) | CPT/HCPCS: 84702 ==

== ENCOUNTER → 2025-03-22 13:41 | Outpatient (BNVA) | payer BC, SELFPAY | PROVIDERS: PCP Family Medicine; Visit Provider Family Medicine | DX: I10 Essential (primary) hypertension (principal); R73.9 Hyperglycemia, unspecified; Z86.39 Personal history of other endocrine, nutritional and metabolic disease; E03.9 Hypothyroidism, unspecified | CPT/HCPCS: 80053; 80061; 83036; 84439; 84443; 85025 ==